=== PATIENT | male | born 1985 | race Two or more races ===

== ENCOUNTER → 2016-08-04 | Outpatient (CLI) | payer OTHER | LOC: BMCIMAGING 11:43 | PROVIDERS: ATTEND Nurse Practitioner Adult Health | DX: M25.532 Pain in left wrist (principal); M79.673 Pain in unspecified foot; G89.29 Other chronic pain ==

== ENCOUNTER → 2016-08-10 | Outpatient (CLI) | payer OTHER | LOC: BMCIMAGING 14:33 | PROVIDERS: ATTEND Nurse Practitioner Adult Health | DX: M53.3 Sacrococcygeal disorders, not elsewhere classified (principal) ==